=== PATIENT | male | born 1960 | race African-American/Black ===

== ENCOUNTER 2016-06-26 18:47 | Emergency (ER) | payer SELFPAY ==
[~2016-06-26] VITALS: Ht 185.4 cm; Wt 110.0 kg
[~2016-06-26 18:47] MED LIST: HYDR-3533 PO; IBUP600T26 PO
[2016-06-26 19:12] VITALS: BP 129/78; PULSE 74; RESP 16; TEMP 97.5; O2SAT 95
[2016-06-26] MEDS ORDERED: KETOROLAC TROMETHAMINE 60 MG/2 ML (IM) VIAL IM ONE (19:15)
[2016-06-26] MEDS ORDERED: ORPHENADRINE INJ 60 MG/2 ML AMP IM ONE (19:15)
[2016-06-26] MEDS ORDERED: CYCL5TAB PO (19:18)
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
== END 2016-06-26 20:05 | disposition home or self-care (01) ==
LOC: NEPD 18:47
DX: S39.012A Strain of muscle, fascia and tendon of lower back, initial encounter (principal); F17.210 Nicotine dependence, cigarettes, uncomplicated; V43.62XA Car passenger injured in collision with other type car in traffic accident, initial encounter; Y93.89 Activity, other specified; Y92.410 Unspecified street and highway as the place of occurrence of the external cause; Y99.8 Other external cause status
CPT/HCPCS: 96372; 99284; J1885; J2360